=== PATIENT | male | born 1975 | race Caucasian/White ===

== ENCOUNTER 2017-12-25 09:48 | Emergency (ER) | payer SELFPAY ==
[~2017-12-25] VITALS: Ht 162.6 cm; Wt 98.4 kg
[2017-12-25 09:55] VITALS: BP 139/88
--- NOTE | 2017-12-25 09:59 | NUR ---
PT AMBULATED TO [facility]
--- NOTE | 2017-12-25 10:00 | NUR ---
42Y/M C/O LEFT RIB PAIN AFTER COUGHING THIS MORNING; WORSE THIS MORNING; COUGH AND CONGESTION X3 WEEKS; SEEN AT URGENT CARE FRIDAY AND WAS GIVEN A Z-LILY AND FINISHED IT YESTERDAY. HX: NONE. PATIENT POSITIONED FOR COMFORT; ER MD MADE AWARE OF PT STATUS.
--- NOTE | 2017-12-25 10:15 | NUR ---
Patient being evaluated by physician at bedside.
--- NOTE | 2017-12-25 10:15 | NUR ---
Note undone in EDM - 12/25/17 at 1100 by [facility] Patient discharged with v/s stable. Written and verbal after care instructions given and explained. Patient alert, oriented and verbalized understanding of instructions. Ambulatory with steady gait. All questions addressed prior to discharge. ID band removed. Patient advised to follow up with PMD. Rx of PREDNISONE, TRAMADOL, PROMETHAZINE DM, BACTRIUM DS given. Patient educated on indication of medication including possible reaction and side effects. Opportunity to ask questions provided and answered.
[2017-12-25] MEDS ORDERED: ALBUTEROL SULFATE/IPRATROPIU 3 ML SOL IH ONE (10:20)
[2017-12-25] MEDS ORDERED: HYDROcodone/APAP 5/325 MG 1 TAB TAB PO ONE (10:20)
[2017-12-25] MEDS ORDERED: KETOROLAC 30 MG/ML VIAL IM ONE (10:20)
[2017-12-25] MEDS ORDERED: diphenhydrAMINE 50 MG/ML VIAL IM ONE (10:20)
[2017-12-25 10:55] VITALS: BP 137/86
--- NOTE | 2017-12-25 10:55 | NUR ---
Patient discharged with v/s stable. Written and verbal after care instructions given and explained. Patient alert, oriented and verbalized understanding of instructions. Ambulatory with steady gait. All questions addressed prior to discharge. ID band removed. Patient advised to follow up with PMD. Rx of PREDNISONE, TRAMADOL, PROMETHAZINE DM, BACTRIUM DS given. Patient educated on indication of medication including possible reaction and side effects. Opportunity to ask questions provided and answered.
== END 2017-12-25 10:55 | disposition home or self-care (01) ==
LOC: MED 09:48
DX: J40 Bronchitis, not specified as acute or chronic (principal)
CPT/HCPCS: 71046; 94640; 96372; 99284; J1200; J1885; J7620

== ENCOUNTER 2020-02-24 18:56 | Emergency (ER) | payer OTHER ==
[~2020-02-24] VITALS: Ht 162.6 cm; Wt 104.3 kg
[2020-02-24 19:03] VITALS: BP 128/96
--- NOTE | 2020-02-24 19:22 | NUR ---
CMS INTACT ON BLE. PEDAL PULSES PRESENT BLE.
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
--- NOTE | 2020-02-24 19:35 | NUR ---
XR AT BEDSIDE.
[2020-02-24 20:05] VITALS: BP 128/96
== END 2020-02-24 20:05 | disposition home or self-care (01) ==
LOC: MED 18:56
DX: S90.02XA Contusion of left ankle, initial encounter (principal); W22.8XXA Striking against or struck by other objects, initial encounter; Y93.89 Activity, other specified; Y92.89 Other specified places as the place of occurrence of the external cause; Y99.8 Other external cause status
CPT/HCPCS: 73610; 99283; Q0092

== ENCOUNTER 2020-08-25 14:08 | Emergency (ER) | payer OTHER, SELFPAY ==
[~2020-08-25] VITALS: Ht 162.6 cm; Wt 109.8 kg
[2020-08-25 14:16] VITALS: BP 136/84
--- NOTE | 2020-08-25 14:23 | NUR ---
45/M BIB SELF C/O COUGH, STUFFY NOSE, CHILLS X 2 WEEKS. COVID TESTED 2 DAYS AGO: NEGATIVE RESULT .PMH: LARGE LIVER, PRE DM.
--- NOTE | 2020-08-25 15:34 | NUR ---
Patient discharged with v/s stable. Written and verbal after care instructions given and explained. Patient alert, oriented and verbalized understanding of instructions. Ambulatory with steady gait. All questions addressed prior to discharge. ID band removed. Patient advised to follow up with PMD. Rx of OMEPRAZOLE, LORATADINE, PROMETHAZINE given. Patient educated on indication of medication including possible reaction and side effects. Opportunity to ask questions provided and answered.
[2020-08-25 15:35] VITALS: BP 136/84
== END 2020-08-25 15:34 | disposition home or self-care (01) ==
LOC: MED 14:08
DX: J30.2 Other seasonal allergic rhinitis (principal); K21.9 Gastro-esophageal reflux disease without esophagitis; R73.03 Prediabetes; Z68.41 Body mass index [BMI] 40.0-44.9, adult
CPT/HCPCS: 71045; 74018; 99284

== ENCOUNTER 2020-08-26 10:17 | Emergency (ER) | payer OTHER, SELFPAY ==
[~2020-08-26] VITALS: Ht 162.6 cm; Wt 109.8 kg
[2020-08-26 10:45] VITALS: BP 145/75
--- NOTE | 2020-08-26 11:25 | NUR ---
Patient discharged with v/s stable. Written and verbal after care instructions given and explained. Patient alert, oriented and verbalized understanding of instructions. Ambulatory with steady gait. All questions addressed prior to discharge. ID band removed. Patient advised to follow up with PMD. Rx of Albuterol, Motrin, and Prednisone given. Patient educated on indication of medication including possible reaction and side effects. Opportunity to ask questions provided and answered. No nursing care provided in our ER.
== END 2020-08-26 11:25 | disposition home or self-care (01) ==
LOC: MED 10:17
DX: J02.9 Acute pharyngitis, unspecified (principal); R05 Cough; F17.200 Nicotine dependence, unspecified, uncomplicated; Z90.49 Acquired absence of other specified parts of digestive tract; Z98.890 Other specified postprocedural states
CPT/HCPCS: 99283

== ENCOUNTER 2020-08-30 20:15 | Emergency (ER) | payer OTHER, SELFPAY ==
--- NOTE | 2020-08-30 20:30 | NUR ---
PATIENT CALLED TO BE TRIAGE NO RESPONSE. PATIENT LEFT WITHOUT BEING SEEN BY DR. LIZARRAGA. NO FURTHER CARE PROVIDED FOR PATIENT.
--- NOTE | 2020-08-30 20:30 | NUR ---
PATIENT LEFT WITHOUT BEING SEEN BY DR. LIZARRAGA. NO FURTHER CARE PROVIDED FOR PATIENT.PT VSS PRIOR TO LWBS
--- NOTE | 2020-08-30 20:35 | NUR ---
CALLED FOR THE SECOND TIME, NO RESPONSE
--- NOTE | 2020-08-30 20:40 | NUR ---
CALLED FOR THE THIRD TIME NO RESPONSE.
== END 2020-08-30 20:30 | disposition left against medical advice (07) ==
LOC: MED 20:15
DX: R05 Cough (principal); Z53.21 Procedure and treatment not carried out due to patient leaving prior to being seen by health care provider

== ENCOUNTER 2020-09-03 08:22 | Emergency (ER) | payer OTHER, SELFPAY | END 2020-09-03 09:20 | disposition left against medical advice (07) | LOC: MED 08:22 | DX: R05 Cough (principal); Z53.21 Procedure and treatment not carried out due to patient leaving prior to being seen by health care provider ==

== ENCOUNTER 2020-09-07 15:36 | Emergency (ER) | payer OTHER, SELFPAY ==
[~2020-09-07] VITALS: Ht 162.6 cm; Wt 104.3 kg
[2020-09-07 15:52] VITALS: BP 149/93
--- NOTE | 2020-09-07 16:00 | NUR ---
45/M BIB FRIEND C/O COUGH, INTERMITENT FEVER, RUQ ABD PAIN X 1 WEEK.COVID TESTED 08/23/20 : NEGATIVE.
[2020-09-07 17:21] LABS: BASOPHILS % (AUTO) 0.4 % (0.0-2.0); EOSINOPHILS # (AUTO) 0.2 K/uL (0-0.4); EOSINOPHILS % (AUTO) 2.4 % (0.0-4.0); HEMATOCRIT 44.3 % (36-52); HEMOGLOBIN 15.1 g/dL (12.0-18.0); LYMPHOCYTES # (AUTO) 1.9 K/uL (2.0-11.5); MEAN CORPUSCULAR HEMOGLOBIN 31 pg (27-31); MEAN CORPUSCULAR HGB CONC 34 g/dL (33-37); MEAN CORPUSCULAR VOLUME 91.9 fL (80-94); MONOCYTES # (AUTO) 0.8 K/uL (0.8-1.0); MONOCYTES % (AUTO) 8.9 % (1.7-9.3); NEUTROPHILS # (AUTO) 6.1 K/uL (1.8-7.7); NEUTROPHILS % (AUTO) 67.3 % (42.2-75.2); PLATELET COUNT (AUTO) 316 K/uL (140-450); RED BLOOD CELL COUNT(AUTO) 4.82 MIL/uL (4.20-6.10); RED CELL DISTRIBUTION WIDTH 11.9 % (11.6-13.7); WHITE BLOOD COUNT (AUTO) 9.1 K/uL (4.8-10.8)
--- NOTE | 2020-09-07 18:00 | NUR ---
DANYEL SHARON SWAB COLLECTED AND WALKED TO LAB.
[2020-09-07 18:02] LABS: ALBUMIN 3.4 g/dL (3.4-5.0); CARBON DIOXIDE 26.8 mmol/L (21-32); CREATININE 0.8 mg/dL (0.6-1.3); POTASSIUM 3.8 mmol/L (3.5-5.1); TOTAL BILIRUBIN 0.4 mg/dL (0.0-1.0)
[2020-09-07 19:03] VITALS: BP 149/93
--- NOTE | 2020-09-07 19:03 | NUR ---
Patient discharged with v/s stable. Written and verbal after care instructions given and explained. Patient alert, oriented and verbalized understanding of instructions. Ambulatory with steady gait. All questions addressed prior to discharge. ID band removed. Patient advised to follow up with PMD. Rx of AUGMENTIN, ALBUTEROL, TESSALON PERLES & PREDNISONE given. Patient educated on indication of medication including possible reaction and side effects. Opportunity to ask questions provided and answered.
[2020-09-07 19:54] LABS: PROTHROMBIN TIME 9.4 secs (10.8-13.4)
== END 2020-09-07 19:03 | disposition home or self-care (01) ==
LOC: MED 15:36
DX: J18.9 Pneumonia, unspecified organism (principal); Z20.828 Contact with and (suspected) exposure to other viral communicable diseases; R10.11 Right upper quadrant pain; K76.89 Other specified diseases of liver
CPT/HCPCS: 36415; 71250; 80053; 83690; 85025; 85610; 99285

== ENCOUNTER 2020-09-15 21:43 | Emergency (ER) | payer OTHER ==
[~2020-09-15] VITALS: Ht 162.6 cm; Wt 104.3 kg
[2020-09-15 22:00] VITALS: BP 135/91
--- NOTE | 2020-09-15 22:03 | NUR ---
TO LOBBY A/W BED AMBULATORY
[2020-09-16] MEDS ORDERED: KETOROLAC 60 MG/2 ML VIAL IM ONE ×2 (02:35→02:45)
[2020-09-16 03:04] VITALS: BP 135/91
--- NOTE | 2020-09-16 03:05 | NUR ---
Patient discharged with v/s stable. Written and verbal after care instructions given and explained. Patient alert, oriented and verbalized understanding of instructions. Ambulatory with steady gait. All questions addressed prior to discharge. ID band removed. Patient advised to follow up with PMD. Rx of GUAIFENESIN AND NAPROSYN given. Patient educated on indication of medication including possible reaction and side effects. Opportunity to ask questions provided and answered.
== END 2020-09-16 03:05 | disposition home or self-care (01) ==
LOC: MED 21:43
DX: J20.9 Acute bronchitis, unspecified (principal)
CPT/HCPCS: 71045; 93005; 96372; 99283; J1885

== ENCOUNTER 2021-05-04 00:25 | Emergency (ER) | payer OTHER ==
[~2021-05-04] VITALS: Ht 165.1 cm; Wt 108.4 kg
[2021-05-04 00:48] VITALS: BP 132/75
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
[2021-05-04] MEDS ORDERED: LIDOCAINE/EPI 1% 1:100000 20 ML VIAL INJ ONE (03:05)
--- NOTE | 2021-05-04 03:06 | NUR ---
PT TAKEN TO CHAIR A
--- NOTE | 2021-05-04 04:00 | NUR ---
Patient discharged with v/s stable. verbal after care instructions given and explained. Pt left without signing aci. Patient verbalized understanding. Ambulatory with steady gait. All questions addressed prior to discharge. Advised to follow up with PMD.
== END 2021-05-04 04:00 | disposition home or self-care (01) ==
LOC: MED 00:25
DX: S60.451A Superficial foreign body of left index finger, initial encounter (principal); X58.XXXA Exposure to other specified factors, initial encounter; Y93.89 Activity, other specified; Y92.89 Other specified places as the place of occurrence of the external cause; Y99.8 Other external cause status
CPT/HCPCS: 99284; J2001

== ENCOUNTER 2022-06-30 18:16 | Emergency (ER) | payer OTHER ==
[~2022-06-30] VITALS: Ht 160 cm; Wt 108.4 kg
[2022-06-30 18:30] VITALS: BP 141/86
[2022-06-30 18:45] VITALS: BP 139/84
[2022-06-30] MEDS ORDERED: KETOROLAC 30 MG/ML VIAL IM ONE (19:05)
[2022-06-30] MEDS ORDERED: NAPR-1704 PO ×2 (19:18→19:43)
== END 2022-06-30 19:44 | disposition home or self-care (01) ==
LOC: MED 18:16
DX: M72.2 Plantar fascial fibromatosis (principal); F17.200 Nicotine dependence, unspecified, uncomplicated; Z79.899 Other long term (current) drug therapy; Z98.890 Other specified postprocedural states
CPT/HCPCS: 73630; 96372; 99283; J1885; Q0092

== ENCOUNTER 2023-04-27 21:14 | Emergency (ER) | payer OTHER ==
[~2023-04-27] VITALS: Ht 162.6 cm; Wt 106.6 kg
[~2023-04-27 21:14] MED LIST: NAPR-1704 PO
[2023-04-27 21:33] VITALS: BP 141/101; PULSE 82; RESP 18; TEMP 97.6; O2SAT 97
--- NOTE | 2023-04-27 21:47 | NUR ---
48 yo/m w c/o L upper back shoulder pain 9/10 sharp/throbbing x2 days constant s/p ligting weights and doing some arm exercises. pt able to move and lift shoulder. pt took norco and ibuprofen x2 hours ago w/o relief. ESTHETICIAN/SKIN THERAPIST mendoza bedside assessing pt. pmh: denies allergies: denies
[2023-04-27] MEDS ORDERED: KETOROLAC 30 MG/ML VIAL IM ONE (21:50)
[2023-04-27] MEDS ORDERED: LID5T TP (22:42)
[2023-04-27] MEDS ORDERED: CYCL-711 PO (22:42)
[2023-04-27] MEDS ORDERED: DEXAMETHASONE 10 MG/ML VIAL IM ONE (22:50)
[2023-04-27] MEDS ORDERED: LIDOCAINE 5% 1 EA PATCH TP STA (22:51)
[2023-04-27 23:34] VITALS: BP 135/85; PULSE 81; RESP 18; TEMP 97.6; O2SAT 97
--- NOTE | 2023-04-27 23:35 | NUR ---
Patient discharged with v/s stable. Written and verbal after care instructions given and explained. Patient alert, oriented and verbalized understanding of instructions. Ambulatory with steady gait. All questions addressed prior to discharge. ID band removed. Patient advised to follow up with PMD. Rx of FLEXERIL, LIDODERM given. Patient educated on indication of medication including possible reaction and side effects. Opportunity to ask questions provided and answered.
[2023-04-28] MEDS ORDERED: LIDOCAINE 5% 1 EA PATCH TP SCH (09:00)
== END 2023-04-27 23:35 | disposition home or self-care (01) ==
LOC: MED 21:14
DX: S39.92XA Unspecified injury of lower back, initial encounter (principal); Z79.899 Other long term (current) drug therapy; X58.XXXA Exposure to other specified factors, initial encounter; Y93.89 Activity, other specified; Y92.89 Other specified places as the place of occurrence of the external cause; Y99.8 Other external cause status
CPT/HCPCS: 72050; 73010; 96372; 99284; J1100